=== PATIENT | male | born 1980 | race Caucasian/White ===

== ENCOUNTER 2017-01-29 13:01 | Emergency (ER) | payer OTHER ==
[2017-01-29 13:09] VITALS: BP 142/84; PULSE 73; RESP 16; TEMP 98.9
[2017-01-29] MEDS ORDERED: PROPARACAINE 0.5% OPHTH DROPS 15 ML BTL BOTH EYES STA (13:18)
--- NOTE | 2017-01-29 13:21 | ED ---
ENT HPI - General Chief complaint: ENT Stated complaint: Shingles Sent by ME Time Seen by Provider: 01/29/17 13:11 Source: patient, RN/MD, RN notes reviewed, old records reviewed Mode of arrival: ambulatory Limitations: no limitations - History of Present Illness Initial comments: 36-year-old male presents emergency Department chief complaint patient will outbreak for the past weekend. Patient reports he initially noticed the shingles starting on . Patient reports that his pain started initially with severe migraine headache. Patient reports he has chronic migraines but this is the worst headache he's ever had. He went to [facility] and was placed on acyclovir. He reports that he has been on it for the past 3 days. Patient states that he was concerned because yesterday into today he noticed some pain over his left eye. Patient reports that his eye has became red and somewhat swollen. He reports that he has some lesions surrounding the eye. He was told to come to the emergency department for further evaluation to determine if the shingles of now traveled into the eye or to the redness and swelling just related to the extraocular eye lesions. Patient denies any change in vision. He denies any previous history of shingles, this is his first outbreak.d - Related Data Home Medications Medication Instructions Recorded Confirmed Acyclovir [Zovirax] 200 mg PO HS 01/29/17 01/29/17 Acyclovir [Zovirax] 400 mg PO BID 01/29/17 01/29/17 Baclofen 10 mg PO HS PRN 01/29/17 01/29/17 Naproxen [Naprosyn] 375 mg PO Q12HR PRN 01/29/17 01/29/17 Previous Rx's Medication Instructions Recorded HYDROcodone/APAP 5-325MG [[place] 1 tab PO Q6HR PRN #15 tab 01/29/17 5-325] Trifluridine 1% Ophth Soln 1 drops LEFT EYE Q4H #1 bottle 01/29/17 [Viroptic] Allergies Allergy/AdvReac Type Severity Reaction Status Date / Time No Known Allergies Allergy Verified 01/29/17 13:09 Review of Systems ROS Statement: Those systems with pertinent positive or pertinent negative responses have been documented in the HPI. ROS Other: All systems not noted in ROS Statement are negative. Past Medical History Past Medical History: No Reported History Additional Past Medical History / Comment(s): migraines History of Any Multi-Drug Resistant Organisms: None Reported Past Surgical History: No Surgical Hx Reported Past Psychological History: No Psychological Hx Reported Smoking Status: Never smoker Past Alcohol Use History: None Reported Past Drug Use History: None Reported General Exam - General Exam Comments Initial Comments: 36-year-old male. No acute distress. Limitations: no limitations General appearance: alert, in no apparent distress Head exam: Present: atraumatic, normocephalic, normal inspection, other ( Evidence of herpes-like lesions over the left side of the forehead. There is a lesion on the lateral aspect of the corner of the left eye.) Eye exam: Present: normal appearance, PERRL, EOMI, conjunctival injection (Left eye conjunctival injection.), other (under [place] exam, patient has evidence of a small dendritic lesion at 6 oclock posiition. ). Absent: scleral icterus, periorbital swelling ENT exam: Present: normal exam, mucous membranes moist Neck exam: Present: normal inspection. Absent: tenderness, meningismus, lymphadenopathy Respiratory exam: Present: normal lung sounds bilaterally. Absent: respiratory distress, wheezes, rales, rhonchi, stridor Cardiovascular Exam: Present: regular rate, normal rhythm, normal heart sounds. Absent: systolic murmur, diastolic murmur, rubs, gallop, clicks GI/Abdominal exam: Present: soft, normal bowel sounds. Absent: distended, tenderness, guarding, rebound, rigid Extremities exam: Present: normal inspection, full ROM, normal capillary refill. Absent: tenderness, pedal edema, joint swelling, calf tenderness Back exam: Present: normal inspection Neurological exam: Present: alert, oriented X3, CN II-XII intact Psychiatric exam: Present: normal affect, normal mood Skin exam: Present: vesicles (erythematous vesicles over left forehead, corner of left eye. ) Course Vital Signs 01/29/17 13:04 Temperature 98.9 F Pulse Rate 73 Respiratory 16 Rate Blood Pressure 142/84 O2 Sat by Pulse 99 Oximetry Medical Decision Making - Medical Decision Making 36-year-old male presents emergency Department chief complaint patient will outbreak for the past weekend. Patient reports he initially noticed the shingles starting on . Patient reports that his pain started initially with severe migraine headache. Patient reports he has chronic migraines but this is the worst headache he's ever had. He went to [facility] and was placed on acyclovir. Patient has some lesions over the left side of the forehead, and under flourescein eye exam there appears to be a small, likely dendritis lesion at 6 oclock. Patient informed of this. Due to the history of severe migraine, patient underwent CT with and without contrast. Patient lab work was reveiwed, negative for any acute process. CT brain without showed a small hypdensity area on the right temoporal lobe, radiologist states that this could be related to infection, but this may be an incidental finding. Also patient lesions on on the left side of the eye, making this less concerning. CT Angio was negative for any aneurysm. Patient given reglan, benadryl, and toradol. He reports that his headache is subsiding. Patient case discussed with Dr. Thompson, whom also examined the pateint. At this time there is no opthalmologist calibration laboratory technician, and multiple attempts made to contact them. At this time, patient will be started on Viroptic drops and advised to return to the emergency department tomorrow for further evaluation, and that opthalmology can be consulted then. Patient agrees to treatment plan and will comply. Patient given Rx for pain medication due to the shingles and headache. - Lab Data Result diagrams: 01/29/17 14:10 01/29/17 14:10 Lab Results 01/29/17 01/29/17 01/29/17 Range/Units 14:10 14:10 14:10 WBC 6.5 (3.8-10.6) k/uL RBC 5.22 (4.30-5.90) m/uL Hgb 15.2 (13.0-17.5) gm/dL Hct 44.9 (39.0-53.0) % MCV 85.9 (80.0-100.0) fL MCH 29.2 (25.0-35.0) pg MCHC 34.0 (31.0-37.0) g/dL RDW 13.7 (11.5-15.5) % Plt Count 213 (150-450) k/uL Neutrophils % 63 % Lymphocytes % 21 % Monocytes % 9 % Eosinophils % 3 % Basophils % 1 % Neutrophils # 4.1 (1.3-7.7) k/uL Lymphocytes # 1.4 (1.0-4.8) k/uL Monocytes # 0.6 (0-1.0) k/uL Eosinophils # 0.2 (0-0.7) k/uL Basophils # 0.0 (0-0.2) k/uL PT 10.5 (9.0-12.0) sec INR 1.0 (<1.2) APTT 23.0 (22.0-30.0) sec Sodium 139 (137-145) mmol/L Potassium 3.9 (3.5-5.1) mmol/L Chloride 102 (98-107) mmol/L Carbon Dioxide 26 (22-30) mmol/L Anion Gap 11 mmol/L BUN 8 L (9-20) mg/dL Creatinine 0.70 (0.66-1.25) mg/dL Est GFR (MDRD) Af Amer >60 (>60 ml/min/1.73 sqM) Est GFR (MDRD) Non-Af >60 (>60 ml/min/1.73 sqM) Glucose 104 H (74-99) mg/dL Calcium 9.4 (8.4-10.2) mg/dL Total Bilirubin 0.4 (0.2-1.3) mg/dL AST 23 (17-59) U/L ALT 42 (21-72) U/L Alkaline Phosphatase 54 (38-126) U/L Total Protein 7.0 (6.3-8.2) g/dL Albumin 4.1 (3.5-5.0) g/dL - Radiology Data Radiology results: report reviewed Subtle hypodensity within the proximal right temporal lobe. Some ischemic change or edema from infection should be considered. Consider MRI for further evaluation. Some periventricular white matter hypodensities noticed on the right temporal lobe. May be a change from prior exam. Considering MRI of the brain performed for additional evaluation. Jenkins-white matter differentiation somewhat limited on the exam. Report was called to case. I infection on the left wrist findings or other radiation of these findings are more posterior and typically identified with an age is any infection. Ventricles and also appropriately days. Nasal sinuses and mastoid air cells are clear. 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 Return to the emergency department if any alarming signs or symptoms occur. Patient advised to use the eyedrops to take the pain medication as directed. Return to emergency department if any alarming signs or symptoms occur. Prescriptions: HYDROcodone/APAP 5-325MG [[place] 5-325] 1 tab PO Q6HR PRN #15 tab PRN Reason: Pain Trifluridine 1% Ophth Soln [Viroptic] 1 drops LEFT EYE Q4H #1 bottle Referrals: None,Stated [Primary Care Provider] - 1-2 days Elizabeth Gallo MD [STAFF PHYSICIAN] - 1-2 days John Issa MD [STAFF PHYSICIAN] - 1-2 days Sohail Geiger MD [STAFF PHYSICIAN] - 1-2 days Boaz Bell MD [STAFF PHYSICIAN] - 1-2 days Time of Disposition: 16:17
[2017-01-29] MEDS ORDERED: diphenhydrAMINE 50 MG/ML 1 ML VIAL IVP STA (13:58)
[2017-01-29] MEDS ORDERED: SODIUM CHLORIDE 0.9% 1,000 ML IV STA (13:58)
[2017-01-29] MEDS ORDERED: RX INFO: IV CONTRAST WAS GIVEN 1 EACH MISC MISCELLANE PRN (13:58)
[2017-01-29] MEDS ORDERED: METOCLOPRAMIDE 5 MG/ML 2 ML VIAL IVP STA (13:58)
[2017-01-29 14:45] LABS: ALT 42 U/L (21-72); AST 23 U/L (17-59); Alkaline Phosphatase 54 U/L (38-126); Anion Gap 11 mmol/L; Blood Urea Nitrogen 8 mg/dL (9-20); Calcium 9.4 mg/dL (8.4-10.2); Carbon Dioxide 26 mmol/L (22-30); Chloride 102 mmol/L (98-107); Glucose 104 mg/dL (74-99); Non-African American GFR(MDRD) >60 (>60 ml/min/1.73 sqM); Potassium 3.9 mmol/L (3.5-5.1); Sodium 139 mmol/L (137-145); Total Bilirubin 0.4 mg/dL (0.2-1.3)
[2017-01-29 14:49] LABS: Prothrombin Time 10.5 sec (9.0-12.0)
[2017-01-29 14:57] LABS: Basophils % (A) 1 %; CH 30.3; CHCM 35.4; Eosinophils # (A) 0.2 k/uL (0-0.7); Eosinophils % (A) 3 %; HCT 44.9 % (39.0-53.0); HDW 2.52; HGB 15.2 gm/dL (13.0-17.5); Luc # (Auto) 0.23; Luc % (Auto) 4; Lymphocytes # (A) 1.4 k/uL (1.0-4.8); Lymphocytes % (A) 21 %; MCH 29.2 pg (25.0-35.0); MCV 85.9 fL (80.0-100.0); Mean Platelet Volume 8.3; Monocytes # (A) 0.6 k/uL (0-1.0); Monocytes % (A) 9 %; Neutrophils # (A) 4.1 k/uL (1.3-7.7); Neutrophils % (A) 63 %; RBC 5.22 m/uL (4.30-5.90); RDW 13.7 % (11.5-15.5); WBC 6.5 k/uL (3.8-10.6); WBC (Perox) 6.25
--- NOTE | 2017-01-29 15:04 | CT ---
EXAMINATION TYPE: CT brain wo con DATE OF EXAM: 01/29/2017 COMPARISON: 01/29/2017 INDICATION: Patient complains of shingles that have spread around his eye. Patient is 3 days on acyc lovir. Patient complains of slight chronic headache x3 days. Patient has history of prior migraines . DLP: 845.3 mGycm, Automated exposure control for dose reduction was used. CONTRAST: None CT of the brain is performed utilizing 3 mm thick sections through the posterior fossa and 3 mm thick sections through the remaining calvarium. Study is performed within 24 hours of arrival to the hosp [facility]. No abnormal hyperdensity is present to suggest an acute intracranial hemorrhage. No mass lesion is evident. There is some subtle low density through the proximal right temporal lobe. Some periventricular white matter hypodensity is present on the right. This may be a change from prior examination. Consider MR I of the brain for additional evaluation. The mcgowan-white matter differentiation is somewhat limited o n this exam. Report was called case discussed with the emergency room 1500 hours 01/29/2017. The eye i nfection is on the left where as the findings are on the right. Additionally, these findings are more posterior than typically identified within the HSV infection. Ventricles and sulci are appropriate for the patient age. Paranasal sinuses and mastoid air cells within the [id number] are clear. IMPRESSIONS: 1. Subtle hypodensity within the proximal right temporal lobe. Some ischemic change or edema from i nfection should be considered. Consider MRI for additional evaluation.
--- NOTE | 2017-01-29 15:12 | CT ---
EXAMINATION TYPE: CT angio head DATE OF EXAM: 01/29/2017 2:47 PM COMPARISON: NONE HISTORY: Patient complains of shingles that have spread around his eye. Patient is 3 days on acyclov ir. Patient complains of slight chronic headache x3 days. Patient has history of prior migraines. CT DLP: 1140.9 mGycm Automated exposure control for dose reduction was used. TECHNIQUE: Performed with IV Contrast, patient injected with 100 mL of Omnipaque 350. Images were obtained through the [facility] [place].. FINDINGS: Internal carotid arteries bifurcate normally into A1 and M1 segments. M2 segments appear normal. Midd le cerebral artery branches appear unremarkable. A2 segments appear normal. The anterior communicatin g artery is patent. Right posterior communicating artery appears patent. Vertebrobasilar arteries and the posterior cerebral arteries appear normal. Three-D reconstructed images in the coronal and sagittal plane are reviewed on the computer. Three-D reconstructed images are performed by the technologist on the [employer] computer and presented. IMPRESSION: NORMAL CTA [place]
--- NOTE | 2017-01-29 15:23 | XR ---
EXAMINATION TYPE: XR chest 2V DATE OF EXAM: 01/29/2017 COMPARISON: NONE INDICATION: Patient being treated for shingles TECHNIQUE: Frontal and lateral views of the chest are obtained. FINDINGS: The heart size is normal. The pulmonary vasculature is normal. The lungs are clear. IMPRESSION: 1. No acute pulmonary process.
== END 2017-01-29 16:57 | disposition home or self-care (01) ==
LOC: EC 13:01
DX: B02.30 Zoster ocular disease, unspecified (principal); G43.909 Migraine, unspecified, not intractable, without status migrainosus; Z79.899 Other long term (current) drug therapy
CPT/HCPCS: 99284; 96374; 96375; 96361; 36415; 80053; 85025; 85610; 85730; 71020; 70496; 70450; J1200; J2765; Q9967

== ENCOUNTER 2017-01-30 09:25 | Emergency (ER) | payer OTHER ==
[2017-01-30 09:39] VITALS: BP 132/82; PULSE 83; RESP 16; TEMP 98.1
--- NOTE | 2017-01-30 10:18 | ED ---
General Adult HPI - General Chief complaint: Eye Problems Stated complaint: eye pain Time Seen by Provider: 01/30/17 09:55 Source: patient, RN notes reviewed Mode of arrival: ambulatory Limitations: no limitations - History of Present Illness Initial comments: Patient is a pleasant 36-year-old male presenting to the emergency department with concern for herpes infection of the eye. Patient was recently diagnosed with shingles and started on acyclovir. Patient has been having headaches recently however does have chronic headaches. Patient started having left eye redness the last couple of days. Patient was in the emergency department yesterday however no simulation developer was special education teachers. Patient was given prescription for antiviral eyedrops however tried 3 places without success to get it filled. Patient states this morning he felt his vision was somewhat decreased however at this time is normal. No trauma. No pain. - Related Data Home Medications Medication Instructions Recorded Confirmed Acyclovir [Zovirax] 200 mg PO 5XD 01/29/17 01/30/17 Fioricet 50-300-40 1 tab PO Q4H PRN 01/30/17 01/30/17 Previous Rx's Medication Instructions Recorded Trifluridine 1% Ophth Soln 1 drops LEFT EYE Q4H #1 bottle 01/29/17 [Viroptic] Ganciclovir [Zirgan] 1 applicate TOPICAL TID #1 tube 01/30/17 Allergies Allergy/AdvReac Type Severity Reaction Status Date / Time No Known Allergies Allergy Verified 01/30/17 10:13 Review of Systems ROS Statement: Those systems with pertinent positive or pertinent negative responses have been documented in the HPI. ROS Other: All systems not noted in ROS Statement are negative. Constitutional: Denies: fever Eyes: Reports: eye discharge, vision change (This morning). Denies: eye pain ENT: Denies: ear pain Respiratory: Denies: cough Cardiovascular: Denies: chest pain Endocrine: Denies: fatigue Gastrointestinal: Denies: abdominal pain Genitourinary: Denies: dysuria Musculoskeletal: Denies: back pain Skin: Reports: rash Neurological: Reports: headache Past Medical History Past Medical History: No Reported History Additional Past Medical History / Comment(s): migraines History of Any Multi-Drug Resistant Organisms: None Reported Past Surgical History: No Surgical Hx Reported Past Psychological History: No Psychological Hx Reported Smoking Status: Never smoker Past Alcohol Use History: None Reported Past Drug Use History: None Reported General Exam Limitations: no limitations General appearance: alert, in no apparent distress Head exam: Present: atraumatic Eye exam: Present: conjunctival injection Pupils: Present: other (Fluorescein staining has minimal uptake could be dendritic.) Expanded Eyelids: Normal Inspection: Bilateral Pupils: Regular, Round: Bilateral Sclera/Conjunctival: Injection: Left ENT exam: Present: normal oropharynx Neck exam: Present: normal inspection Respiratory exam: Present: normal lung sounds bilaterally Cardiovascular Exam: Present: regular rate, normal rhythm Neurological exam: Present: alert Psychiatric exam: Present: normal affect, normal mood Skin exam: Present: rash (Patient has several erythematous lesions of the forehead there is some minimal crusting of the lesions.) Course Vital Signs 01/30/17 09:36 Temperature 98.1 F Pulse Rate 83 Respiratory 16 Rate Blood Pressure 132/82 O2 Sat by Pulse 98 Oximetry Medical Decision Making - Medical Decision Making Case was discussed with Dr. Sauceda who will follow up with patient tomorrow morning at 8 AM. He states the patient cannot give Viroptic for a day or 2 that is okay. He states patient could also be provided prescription for zirgan. Patient and family were updated regarding this and need for follow-up. 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 Sauceda at 8 AM tomorrow. Return for decreased vision, increased rash, worsening symptoms or other concerns. Continue acyclovir. Prescriptions: Ganciclovir [Zirgan] 1 applicate TOPICAL TID #1 tube Referrals: Vanessa Sauceda MD [STAFF PHYSICIAN] - 1-2 days Nikos Green III, MD [STAFF PHYSICIAN] - 1-2 days Time of Disposition: 10:49
== END 2017-01-30 10:51 | disposition home or self-care (01) ==
LOC: EC 09:25
DX: B02.30 Zoster ocular disease, unspecified (principal); Z86.69 Personal history of other diseases of the nervous system and sense organs; Z79.899 Other long term (current) drug therapy
CPT/HCPCS: 99283

== ENCOUNTER 2020-01-15 08:43 | Emergency (ER) | payer OTHER ==
[2020-01-15 08:52] VITALS: TEMP 97.8
[2020-01-15] MEDS ORDERED: LORazepam 1 MG TAB PO STA (09:08)
--- NOTE | 2020-01-15 09:20 | ED ---
Anxiety HPI - General Chief Complaint: Anxiety Stated Complaint: Dizzy/anxiety Time Seen by Provider: 01/15/20 08:45 Source: patient Mode of arrival: ambulatory - History of Present Illness Initial Comments: Patient is a 39-year-old male with past history of anxiety and depression presents to the emergency department complaining of anxiety. Reports that for the past month he has "felt off. She went and saw his psychiatrist and was started on Seroquel and Atarax last week. He has been taking Trintilix for the past several years. States that he's been on the medication for 4 days. Yesterday he had an episode where he felt as if he could not calm himself down. He attempted to go to work this morning and felt off and therefore he talked to his who told him he should go to the emergency room for evaluation. He denies any suicidal thoughts or homicidal thoughts. No hallucinations. Denies chest pain or shortness of breath. No other alleviating, precipitating or modifying factors - Related Data Home Medications: Home Medications Medication Instructions Recorded Confirmed QUEtiapine [SEROquel] 50 - 100 mg PO HS 01/15/20 01/15/20 Vortioxetine Hydrobromide 20 mg PO HS 01/15/20 01/15/20 [Trintellix] hydrOXYzine pamoate [hydrOXYzine 25 mg PO TID 01/15/20 01/15/20 PAMOATE] Allergies/Adverse Reactions: Allergies Allergy/AdvReac Type Severity Reaction Status Date / Time No Known Allergies Allergy Verified 01/15/20 09:54 Review of Systems ROS Statement: Those systems with pertinent positive or pertinent negative responses have been documented in the HPI. ROS Other: All systems not noted in ROS Statement are negative. Past Medical History Past Medical History: No Reported History Additional Past Medical History / Comment(s): migraines History of Any Multi-Drug Resistant Organisms: None Reported Past Surgical History: No Surgical Hx Reported Past Psychological History: Anxiety Smoking Status: Never smoker Past Alcohol Use History: None Reported Past Drug Use History: None Reported General Exam Limitations: no limitations Course Vital Signs 01/15/20 01/15/20 08:45 10:41 Temperature 97.8 F Pulse Rate 73 68 Respiratory 18 17 Rate Blood Pressure 122/84 116/75 O2 Sat by Pulse 99 99 Oximetry Medical Decision Making - Medical Decision Making Upon arrival the patient is placed in room 15. A thorough history and physical exam was performed. Patient does have difficulty explaining his symptoms. I did order an EKG and the patient was given 1 mg of Ativan by mouth. After the patient had been at her facility for an hour his does arrive to the emergency department and provides further history. She states that the patient has had these symptoms for the past several years. He had full evaluation last year which included a head CT, EEG and cardiac workup, all of which was negative. The diagnosis patient with anxiety need was placed on the Trintilix. States that over the past several weeks he has had recurrence of his symptoms after a year of doing well. He had an episode yesterday which appeared to be a panic attack however his symptoms will usually resolve quickly as states that they have been lingering today. She is requesting laboratory studies to ensure nothing different is going on. She is requesting hormone testing. I inform the patient's that I do not have access to these type of results however I am able to complete some laboratory studies for which they agreed to. Laboratory studies are reviewed and all labs are within normal limits. I discussed this with the patient. He'll be discharged home at this time. Follow up with a psychiatrist for reevaluation of his medications. Return to the emergency department for any new or worsening symptoms. Patient was then discharged home in stable condition - Lab Data Result diagrams: 01/15/20 10:11 01/15/20 10:11 Lab Results 01/15/20 01/15/20 Range/Units 10:11 10:11 WBC 5.1 (3.8-10.6) k/uL RBC 5.22 (4.30-5.90) m/uL Hgb 14.9 (13.0-17.5) gm/dL Hct 45.7 (39.0-53.0) % MCV 87.7 (80.0-100.0) fL MCH 28.6 (25.0-35.0) pg MCHC 32.6 (31.0-37.0) g/dL RDW 12.9 (11.5-15.5) % Plt Count 231 (150-450) k/uL Neutrophils % 63 % Lymphocytes % 23 % Monocytes % 7 % Eosinophils % 4 % Basophils % 1 % Neutrophils # 3.2 (1.3-7.7) k/uL Lymphocytes # 1.2 (1.0-4.8) k/uL Monocytes # 0.3 (0-1.0) k/uL Eosinophils # 0.2 (0-0.7) k/uL Basophils # 0.1 (0-0.2) k/uL Sodium 137 (137-145) mmol/L Potassium 4.4 (3.5-5.1) mmol/L Chloride 107 (98-107) mmol/L Carbon Dioxide 24 (22-30) mmol/L Anion Gap 6 mmol/L BUN 16 (9-20) mg/dL Creatinine 0.85 (0.66-1.25) mg/dL Est GFR (CKD-EPI)AfAm >90 (>60 ml/min/1.73 sqM) Est GFR (CKD-EPI)NonAf >90 (>60 ml/min/1.73 sqM) Glucose 102 H (74-99) mg/dL Calcium 9.3 (8.4-10.2) mg/dL Total Bilirubin 0.7 (0.2-1.3) mg/dL AST 29 (17-59) U/L ALT 31 (4-49) U/L Alkaline Phosphatase 54 (38-126) U/L Total Protein 7.0 (6.3-8.2) g/dL Albumin 4.3 (3.5-5.0) g/dL - EKG Data EKG Comments: EKG demonstrates normal sinus rhythm with a ventricular rate of 60. WI interval 172. QRS 82. QTC of 400. No acute ST segment elevations or depressions concerning for ischemic changes Disposition Clinical Impression: Panic attack, Pre-syncope Disposition: HOME SELF-CARE Condition: Stable Instructions (If sedation given, give patient instructions): Dizziness (ED) Additional Instructions: Please follow up with your therapist at your scheduled appointment today. Please also follow up with your primary care physician in regards to your sym ptoms. Return to the ED for any new or worsening symptoms Is patient prescribed a controlled substance at d/c from ED?: No Referrals: None,Stated [Primary Care Provider] - 1-2 days Time of Disposition: 11:18
[2020-01-15 10:42] VITALS: BP 116/75; PULSE 68; RESP 17
[2020-01-15 10:43] LABS: Basophils # (A) 0.1 k/uL (0-0.2); Basophils % (A) 1 %; Eosinophils # (A) 0.2 k/uL (0-0.7); Eosinophils % (A) 4 %; HCT 45.7 % (39.0-53.0); HGB 14.9 gm/dL (13.0-17.5); Lymphocytes # (A) 1.2 k/uL (1.0-4.8); Lymphocytes % (A) 23 %; MCH 28.6 pg (25.0-35.0); MCHC 32.6 g/dL (31.0-37.0); MCV 87.7 fL (80.0-100.0); Mean Platelet Volume 7.7; Monocytes # (A) 0.3 k/uL (0-1.0); Monocytes % (A) 7 %; Neutrophils # (A) 3.2 k/uL (1.3-7.7); Neutrophils % (A) 63 %; Platelet Count 231 k/uL (150-450); RBC 5.22 m/uL (4.30-5.90); RDW 12.9 % (11.5-15.5); WBC 5.1 k/uL (3.8-10.6)
[2020-01-15 10:51] LABS: ALT 31 U/L (4-49); AST 29 U/L (17-59); African American GFR (CKD) >90 (>60 ml/min/1.73 sqM); Albumin 4.3 g/dL (3.5-5.0); Alkaline Phosphatase 54 U/L (38-126); Anion Gap 6 mmol/L; Blood Urea Nitrogen 16 mg/dL (9-20); Calcium 9.3 mg/dL (8.4-10.2); Carbon Dioxide 24 mmol/L (22-30); Chloride 107 mmol/L (98-107); Glucose 102 mg/dL (74-99); Non-African American GFR(CKD) >90 (>60 ml/min/1.73 sqM); Potassium 4.4 mmol/L (3.5-5.1); Sodium 137 mmol/L (137-145); Total Bilirubin 0.7 mg/dL (0.2-1.3)
== END 2020-01-15 11:26 | disposition home or self-care (01) ==
LOC: EC 08:43
DX: F41.0 Panic disorder [episodic paroxysmal anxiety] (principal); R55 Syncope and collapse; Z79.899 Other long term (current) drug therapy
CPT/HCPCS: 36415; 80053; 85025; 93005; 99283